=== PATIENT | male | born 1970 | race Caucasian/White ===

== ENCOUNTER 2019-12-19 19:55 | Emergency (ER) | payer OTHER ==
[~2019-12-19] VITALS: Ht 167.6 cm; Wt 86.2 kg
[2019-12-19 20:00] VITALS: BP 147/90
[2019-12-19 21:31] LABS: BASOPHILS # (AUTO) 0.1 K/uL (0.00-0.22); BASOPHILS % (AUTO) 0.8 % (0.0-2.0); EOSINOPHILS # (AUTO) 0.1 K/uL (0-0.4); EOSINOPHILS % (AUTO) 1.9 % (0.0-4.0); HEMATOCRIT 41.7 % (36-52); HEMOGLOBIN 14.2 g/dL (12.0-18.0); LYMPHOCYTES # (AUTO) 1.8 K/uL (2.0-11.5); LYMPHOCYTES % (AUTO) 27.5 % (20.5-51.1); MEAN CORPUSCULAR HEMOGLOBIN 33 pg (27-31); MEAN CORPUSCULAR HGB CONC 34 g/dL (33-37); MEAN CORPUSCULAR VOLUME 97.5 fL (80-94); MONOCYTES # (AUTO) 0.5 K/uL (0.8-1.0); MONOCYTES % (AUTO) 7.2 % (1.7-9.3); NEUTROPHILS # (AUTO) 4.1 K/uL (1.8-7.7); NEUTROPHILS % (AUTO) 62.6 % (42.2-75.2); PLATELET COUNT (AUTO) 308 K/uL (140-450); RED BLOOD CELL COUNT(AUTO) 4.27 MIL/uL (4.20-6.10); RED CELL DISTRIBUTION WIDTH 13.3 % (11.6-13.7); WHITE BLOOD COUNT (AUTO) 6.5 K/uL (4.8-10.8)
[2019-12-19 21:46] LABS: ANION GAP 9.8 (8-16); CARBON DIOXIDE 30.9 mmol/L (21-32); CREATININE 0.9 mg/dL (0.6-1.3); POTASSIUM 3.7 mmol/L (3.5-5.1); TOTAL BILIRUBIN 0.2 mg/dL (0.0-1.0)
[2019-12-19 21:50] LABS: PROTHROMBIN TIME 9.4 secs (10.8-13.4)
[2019-12-20 02:08] VITALS: BP 127/56
== END 2019-12-20 02:08 | disposition home or self-care (01) ==
LOC: MED 19:55
DX: R55 Syncope and collapse (principal); R20.2 Paresthesia of skin; R51 Headache
CPT/HCPCS: 36415; 70450; 71045; 80053; 83880; 84484; 85025; 85610; 85730; 93005; 99285; Q0092

== ENCOUNTER 2020-01-29 17:50 | Emergency (ER) | payer OTHER ==
[~2020-01-29] VITALS: Ht 165.1 cm; Wt 84.8 kg
[2020-01-29 18:01] VITALS: BP 123/67
[2020-01-29] MEDS ORDERED: METF500T PO (18:09)
[2020-01-29] MEDS ORDERED: ASPIRIN 81 MG TAB.CHEW PO ONE (18:15)
[2020-01-29] MEDS ORDERED: MORPHINE SULFATE 4 MG/ML SYR IVP ONE (18:15)
--- NOTE | 2020-01-29 18:15 | NUR ---
DR LACEY EVALUATING PT AT BEDSIDE
--- NOTE | 2020-01-29 18:16 | NUR ---
STATES COMPLIANCE WITH HTN MEDS-- LISINOPRIL/HCTZ
--- NOTE | 2020-01-29 18:16 | NUR ---
49/M WITH CC: HIGH BP, CHEST PAIN, AND DIZZINESS X TODAY. UNSURE WHAT HIS BP WAS AT HOME BECAUSE HIS TOOK IT. LEFT SIDED CHEST PAIN RADIATING TO LEFT AND RIGHT ARMS. ALSO STATES HEADACHE AND WEAKNESS. DENIES N/V. DENIES SOB. PT CONNECTED TO BEDSIDE MONITOR. HX- HTN
[2020-01-29 18:24] LABS: APPEARANCE,URINE CLEAR (CLEAR); BILIRUBIN,URINE NEGATIVE (NEGATIVE); BLOOD, URINE NEGATIVE (NEGATIVE); COLOR,URINE YELLOW (YELLOW); LEUKOCYTE ESTERASE ,URINE NEGATIVE (NEGATIVE); NITRITE, URINE NEGATIVE (NEGATIVE); PH,URINE 5.5 (5.0-9.0); UGLUCOSE NEGATIVE (NEGATIVE)
[2020-01-29 18:28] LABS: BASOPHILS # (AUTO) 0.1 K/uL (0.00-0.22); BASOPHILS % (AUTO) 0.6 % (0.0-2.0); EOSINOPHILS # (AUTO) 0.1 K/uL (0-0.4); EOSINOPHILS % (AUTO) 0.7 % (0.0-4.0); HEMATOCRIT 42.2 % (36-52); HEMOGLOBIN 14.4 g/dL (12.0-18.0); LYMPHOCYTES # (AUTO) 2.8 K/uL (2.0-11.5); LYMPHOCYTES % (AUTO) 33.7 % (20.5-51.1); MEAN CORPUSCULAR HEMOGLOBIN 33 pg (27-31); MEAN CORPUSCULAR HGB CONC 34 g/dL (33-37); MEAN CORPUSCULAR VOLUME 95.6 fL (80-94); MONOCYTES # (AUTO) 0.5 K/uL (0.8-1.0); MONOCYTES % (AUTO) 6.4 % (1.7-9.3); NEUTROPHILS # (AUTO) 4.9 K/uL (1.8-7.7); NEUTROPHILS % (AUTO) 58.6 % (42.2-75.2); PLATELET COUNT (AUTO) 318 K/uL (140-450); RED BLOOD CELL COUNT(AUTO) 4.41 MIL/uL (4.20-6.10); RED CELL DISTRIBUTION WIDTH 13.2 % (11.6-13.7); WHITE BLOOD COUNT (AUTO) 8.3 K/uL (4.8-10.8)
[2020-01-29 18:38] LABS: ANION GAP 15.1 (8-16); CARBON DIOXIDE 27.2 mmol/L (21-32); CREATININE 1.2 mg/dL (0.6-1.3); POTASSIUM 3.3 mmol/L (3.5-5.1)
[2020-01-29 18:44] LABS: ALBUMIN 4.3 g/dL (3.4-5.0); TOTAL BILIRUBIN 0.3 mg/dL (0.0-1.0)
[2020-01-29] MEDS ORDERED: POTASSIUM CHLORIDE 10 MEQ TABER PO ONE (18:45)
[2020-01-29 18:53] LABS: BARBITURATE, URINE NEGATIVE ng/ml (NEG <=200); BENZODIAZEPINE, URINE NEGATIVE ng/mL (NEG <=200); CANNABINOID, URINE NEGATIVE ng/mL (NEG <=50); COCAINE, URINE NEGATIVE ng/mL (NEG <=300); OPIATE, URINE NEGATIVE ng/mL (NEG <=2000); PHENCYCLIDINE SCREEN,URINE NEGATIVE ng/mL (NEG <=25)
[2020-01-29] MEDS ORDERED: ONDANSETRON 4 MG/2 ML VIAL IVP ONE (19:00)
[2020-01-29] MEDS ORDERED: MECLIZINE 25 MG TAB PO ONE (19:00)
[2020-01-29] MEDS ORDERED: NACL 0.9% 500 ML IV ONE (19:00)
--- NOTE | 2020-01-29 19:00 | NUR ---
PT DENIES PAIN AT THIS TIME.
--- NOTE | 2020-01-29 19:20 | NUR ---
RECEIVED REPORT, AND PATIENT ENDORSED TO BERNABE ADLER
[2020-01-29 19:25] LABS: FREE T4 (FREE THYROXINE) 0.98 ng/dL (0.76-1.46); THYROID STIMULATING HORMONE 11.38 uIU/mL (0.34-3.74)
--- NOTE | 2020-01-29 19:34 | NUR ---
Dr. Schuster examining patient.
[2020-01-29 20:00] VITALS: BP 126/86
--- NOTE | 2020-01-29 20:00 | NUR ---
Patient discharged with v/s stable. Written and verbal after care instructions given and explained. Patient verbalized understanding. Ambulatory with steady gait. All questions addressed prior to discharge. Advised to follow up with PMD.
== END 2020-01-29 20:00 | disposition home or self-care (01) ==
LOC: MED 17:50
DX: R07.89 Other chest pain (principal); R51 Headache; R42 Dizziness and giddiness; E87.6 Hypokalemia; I10 Essential (primary) hypertension; E07.9 Disorder of thyroid, unspecified
CPT/HCPCS: 36415; 71045; 80053; 80305; 81003; 84439; 84443; 84484; 85025; 93005; 96361; 96374; 96375; 99285; J2270; J2405; J7030; Q0092; J8597